=== PATIENT | female | born 1970 | race Caucasian/White ===

== ENCOUNTER 2020-07-31 07:34 | Day surgery (SDC) | payer OTHER ==
[~2020-07-31] VITALS: Ht 162.6 cm; Wt 69.0 kg
[2020-07-31 08:23] VITALS: BP 118/78
[2020-07-31] MEDS ORDERED: DENIES (08:28)
[2020-07-31] MEDS ORDERED: CEFAZOLIN PMX 1GM/50ML 50 ML IV ONE (08:30)
[2020-07-31] MEDS ORDERED: SODIUM CHLORIDE 0.9% 1,000 ML IV SCH (08:30)
[2020-07-31] MEDS ORDERED: CEFAZOLIN PMX 1GM/50ML 50 ML ONE (08:46)
[2020-07-31] MEDS ORDERED: NALOXONE 1 MG/ML, 2ML ONE (09:04)
[2020-07-31] MEDS ORDERED: FLUMAZENIL 0.1 MG/1 ML, 5ML ONE (09:04)
[2020-07-31] MEDS ORDERED: FENTANYL PF 100 MCG/2ML ONE (09:04)
[2020-07-31] MEDS ORDERED: MIDAZOLAM 1 MG/ML, 5ML ONE (09:05)
[2020-07-31] MEDS ORDERED: LIDOCAINE 1%, 20ML ONE ×2 (09:09→09:28)
[2020-07-31] MEDS ORDERED: LIDOCAINE 1%, 10ML ONE ×2 (09:09→09:28)
== END 2020-07-31 11:55 | disposition home or self-care (01) ==
LOC: OUT 07:34
PROVIDERS: ATTEND Internal Medicine Hematology & Oncology
DX: C50.412 Malignant neoplasm of upper-outer quadrant of left female breast (principal); Z17.1 Estrogen receptor negative status [ER-]; Z79.899 Other long term (current) drug therapy; Z88.8 Allergy status to other drugs, medicaments and biological substances; Z90.710 Acquired absence of both cervix and uterus; Z80.3 Family history of malignant neoplasm of breast
CPT/HCPCS: 36561; 76937; 77001; 99156; 99157; C1788; J0690; J1642; J2250; J2310; J3010; J7030